=== PATIENT | female | born 1990 | race Caucasian/White ===

== ENCOUNTER 2018-12-08 10:41 | Emergency (ER) | payer SELFPAY ==
--- NOTE | 2018-12-08 11:02 | ER Document Report ---
ED Medical Screen (RME) - General Chief Complaint: Vaginal Discharge Stated Complaint: VAGINAL DISCHARGE Time Seen by Provider: 12/08/18 10:59 Primary Care Provider: BAN SOLIS [Primary Care Provider] - Follow up as needed Information source: Patient Notes: Patient presents complaining of vaginal discharge for the past 3 weeks. Patient states that she had intercourse with a condom and the condom broke recently. Patient reports discharge is yellow in color. No concern about at this time. I have greeted and performed a rapid initial assessment of this patient. A comprehensive ED assessment and evaluation of the patient, analysis of test results and completion of the medical decision making process will be conducted by additional ED providers. TRAVEL OUTSIDE OF THE [place] IN LAST 30 DAYS: No - Related Data Allergies/Adverse Reactions: Penicillins Allergy (Verified 12/08/18 10:55) propoxyphene napsylate [From Darvocet-N 100] Allergy (Verified 12/08/18 10:55) morphine [Morphine] Adverse Reaction (Verified 12/08/18 10:55) Past Medical History - Social History Chew tobacco use (# tins/day): No Frequency of alcohol use: None Drug Abuse: None Psychiatric Medical History: Reports: Hx Depression Past Surgical History: Reports: Hx Section - Immunizations Hx Diphtheria, Pertussis, Tetanus Vaccination: Yes Physical Exam - Vital signs Vitals: Temp Pulse Resp BP Pulse Ox 98.4 F 86 16 124/76 98 12/08/18 10:56 12/08/18 10:56 12/08/18 10:56 12/08/18 10:56 12/08/18 10:56 - General General appearance: Appears well, Alert In distress: None Course - Vital Signs Vital signs: Temp Pulse Resp BP Pulse Ox 98.4 F 86 16 124/76 98 12/08/18 10:56 12/08/18 10:56 12/08/18 10:56 12/08/18 10:56 12/08/18 10:56 Doctor's Discharge - Discharge Referrals: BAN SOLIS [Primary Care Provider] - Follow up as needed
[2018-12-08 11:58] LABS: AMORPHOUS SEDIMENT,URINE TRACE /HPF; APPEARANCE,URINE SLIGHTLY-CLOUDY; BILIRUBIN,URINE NEGATIVE (NEGATIVE); COLOR,URINE YELLOW; GLUCOSE, URINE NEGATIVE (NEGATIVE); KETONES,URINE NEGATIVE (NEGATIVE); PROTEIN,URINE NEGATIVE (NEGATIVE); URINE SPECIFIC GRAVITY 1.017; UROBILINOGEN,URINE NEGATIVE mg/dL (<2.0)
[2018-12-08] MEDS ORDERED: CEFTRIAXONE INJ 250 MG VIAL IM ONE (13:24)
[2018-12-08] MEDS ORDERED: AZITHROMYCIN 250 MG TABLET PO ONE (13:24)
[2018-12-08] MEDS ORDERED: LIDOCAINE 1% INJ-PF (10 MG/ML) 30 ML SDV INJ ONE (13:24)
--- NOTE | 2018-12-08 13:29 | ER Document Report ---
HPI - HPI Time Seen by Provider: 12/08/18 10:59 Pain Level: Denies Context: Patient is a 28-year-old female presents to emergency department with a chief complaint of vaginal discharge. Patient reports she did have sexual intercourse 3 weeks ago when the condom broke. Patient reports she is concerned for possible sexually transmitted disease as she is having yellow discharge. Patient is requesting STD prophylaxis. Patient states she is not sure if the significant other is positive for gonorrhea or chlamydia. Patient reports a history of trichomonas. Patient reports her last menstrual cycle was 1 week ago. Patient denies fever. Patient denies urinary symptoms. Patient reports some mild suprapubic pain. - REPRODUCTIVE Reproductive: DENIES: : Past Medical History - General Information source: Patient - Social History Smoking Status: Current Every Day Smoker Chew tobacco use (# tins/day): No Frequency of alcohol use: None Drug Abuse: None Family History: Reviewed & Not Pertinent Patient has suicidal ideation: No Patient has homicidal ideation: No - Past Medical History Cardiac Medical History: Reports: None Pulmonary Medical History: Reports: None EENT Medical History: Reports: None Neurological Medical History: Reports: None Endocrine Medical History: Reports: None Renal/ Medical History: Reports: None Malignancy Medical History: Reports: None GI Medical History: Reports: None Musculoskeletal Medical History: Reports None Skin Medical History: Reports None Psychiatric Medical History: Reports: Hx Depression Traumatic Medical History: Reports: None Infectious Medical History: Reports: None Past Surgical History: Reports: Hx Section - Immunizations Hx Diphtheria, Pertussis, Tetanus Vaccination: Yes Vertical Provider Document - CONSTITUTIONAL Agree With Documented VS: Yes Exam Limitations: No Limitations General Appearance: No Apparent Distress - INFECTION CONTROL TRAVEL OUTSIDE OF THE [place] IN LAST 30 DAYS: No - HEENT HEENT: Atraumatic, Normocephalic, PERRLA - NECK Neck: Normal Inspection - RESPIRATORY Respiratory: Breath Sounds Normal, No Respiratory Distress - CARDIOVASCULAR Cardiovascular: Regular Rate, Regular Rhythm - GI/ABDOMEN Gastrointestinal: Abdomen Soft, Abdomen Non-Tender, Normal Bowel Sounds - BACK Notes: No CVA tenderness - NEURO Level of Consciousness: Awake, Alert, Appropriate - DERM Integumentary: Warm, Dry, No Rash Course - Re-evaluation Re-evalutation: 12/08/18 14:16 STD prophylaxis given to the patient. Patient had to leave prior to receiving results. I did give her a prescription for Flagyl to take twice a day for 7 days. I did inform her I would call her with the trichomonas results as this is a prescription for trichomonas or bacterial vaginosis. Verified telephone number [phone]. 12/08/18 15:25 I did speak with patient via telephone to report results of negative trichomonas, gonorrhea and chlamydia. I did inform her to fill the Flagyl due to BV. Patient verbalized understanding. Strict return precautions given. - Vital Signs Vital signs: Temp Pulse Resp BP Pulse Ox 98.4 F 86 16 124/76 98 12/08/18 10:56 12/08/18 10:56 12/08/18 10:56 12/08/18 10:56 12/08/18 10:56 - Laboratory Laboratory results interpreted by me: 12/08/18 14:17 Laboratory 12/08/18 12/08/18 11:40 13:20 Urine Color YELLOW Urine Appearance SLIGHTLY-CLOUDY Urine pH 7.0 Ur Specific [place] 1.017 Urine Protein NEGATIVE Urine Glucose (UA) NEGATIVE Urine Ketones NEGATIVE Urine Blood NEGATIVE Urine Nitrite (Reflex) NEGATIVE Urine Bilirubin NEGATIVE Urine Urobilinogen NEGATIVE Leukocyte Esterase Rfl NEGATIVE Urine RBC (Auto) 0 Urine Bacteria (Auto) TRACE Urine WBC (Reflex) < 1 Squamous Epi Cells Auto 6 Amorphous Sediment Auto TRACE Urine Mucus (Auto) RARE Urine Ascorbic Acid NEGATIVE Urine HCG, Qual NEGATIVE Bacteria (Wet Prep) 3+ BACTERIA SEEN Trichomonas (Wet Prep) NO TRICHOMONAS SEEN Vaginal WBC 1+ WBCS SEEN Vaginal RBC NO RBCS SEEN Vaginal Yeast NO YEAST SEEN Patient's urinalysis unremarkable without white blood cells or leukocytes and nitrites. +3 bacteria seen consistent with bacterial vaginosis. No trichomonas or yeast. Procedures - Pelvic Exam Pelvic exam Time completed: 13:25 Cultures obtained: Yes Wet prep obtained: Yes Bimanual exam performed: Yes - No CMT Witnessed by: Val BAUMAN Notes: 12/08/18 14:16 Patient's external genitalia was unremarkable without erythema, edema or di scharge. Patient tolerated the insertion of the speculum well. I was able to easily visualize the cervix which was closed. There is no vaginal bleeding. Mild amount white vaginal discharge. No cervical motion tenderness. Discharge - Discharge Clinical Impression: Vaginal discharge, Concern about STD in female without diagnosis, Bacterial vaginosis Condition: Stable Disposition: HOME, SELF-CARE Additional Instructions: Today you are seen in the emergency department for vaginal discharge. You have been prophylactically treated with a one-time dose of antibiotics that will take care of gonorrhea and chlamydia. We have also tested you for trichomonas. Unfortunately you did have to leave prior to getting these results. I have given you a prescription for Flagyl. This should be taken twice a day for the next 7 days. I will call you if the trichomonas comes back positive. If it is positive you do need to get this prescription filled and take the medication as prescribed. Please seek medical attention for any new or worsening symptoms such as fever, severe abdominal pain, severe pelvic pain. Please refrain from sexual activity for the next 2 weeks. Please have your partner checked. Do not drink alcohol while on Flagyl. Prescriptions: Metronidazole [Flagyl 500 mg Tablet] 500 mg PO BID 7 Days #14 tablet Referrals: [facility],NO [NO LOCAL MD] - Follow up as needed
[2018-12-08 13:31] VITALS: BP 111/68
[2018-12-08 13:42] LABS: BACTERIA (WET MOUNT) 3+ BACTERIA SEEN; RBCS (WET MOUNT) NO RBCS SEEN; T.VAGINALIS (WET MOUNT) NO TRICHOMONAS SEEN; WBCS (WET MOUNT) 1+ WBCS SEEN; YEAST (WET MOUNT) NO YEAST SEEN
[2018-12-08 15:11] LABS: CHLAM PCR NOT DETECTED (NOT DETECT)
== END 2018-12-08 13:59 | disposition home or self-care (01) ==
LOC: ER 10:41
DX: N76.0 Acute vaginitis (principal); B96.89 Other specified bacterial agents as the cause of diseases classified elsewhere; R10.30 Lower abdominal pain, unspecified; F17.200 Nicotine dependence, unspecified, uncomplicated; Z20.2 Contact with and (suspected) exposure to infections with a predominantly sexual mode of transmission
CPT/HCPCS: 87210; 81025; 81001; 87491; 87591; J3490; J0696; 96372; 99283